=== PATIENT | female | born 2000 | race African-American/Black ===

== ENCOUNTER 2021-09-04 14:56 | Outpatient (CLI) | payer OTHER | END 2021-09-04 16:06 | disposition home or self-care (01) | LOC: PRENATAL 14:56 | PROVIDERS: ATTEND Obstetrics & Gynecology Maternal & Fetal Medicine | DX: O35.0XX1 Maternal care for (suspected) central nervous system malformation in fetus, fetus 1 (principal); O35.3XX1 Maternal care for (suspected) damage to fetus from viral disease in mother, fetus 1; O98.513 Other viral diseases complicating pregnancy, third trimester; Z36.89 Encounter for other specified antenatal screening; Z3A.30 30 weeks gestation of pregnancy ==

== ENCOUNTER 2021-10-17 14:05 | Outpatient (CLI) | payer OTHER | END 2021-10-17 16:09 | disposition home or self-care (01) | LOC: PRENATAL 14:05 | PROVIDERS: ATTEND Obstetrics & Gynecology Maternal & Fetal Medicine | DX: O26.843 Uterine size-date discrepancy, third trimester (principal); O36.8131 Decreased fetal movements, third trimester, fetus 1; O35.0XX1 Maternal care for (suspected) central nervous system malformation in fetus, fetus 1; Z36.89 Encounter for other specified antenatal screening; Z3A.35 35 weeks gestation of pregnancy ==

== ENCOUNTER 2021-11-12 06:27 | Inpatient (IN) | payer OTHER ==
[~2021-11-12] VITALS: Ht 147.3 cm; Wt 3.2 kg
[2021-11-12] MEDS ORDERED: PRENATAL TABLE1 EAC1 PO (08:42)
[2021-11-12] MEDS ORDERED: FOLIC ACID20 MG PO (08:42)
[2021-11-12] MEDS ORDERED: CHILDREN'S ASPI81 MG PO (08:43)
== END 2021-11-15 12:10 | disposition home or self-care (01) | DRG 788 ==
LOC: OB/GYN 06:27 → LDR 06:27 → OB/GYN 23:49
PROVIDERS: ADMIT Obstetrics & Gynecology; ATTEND Obstetrics & Gynecology
PROC: 10907ZC Drainage of Amniotic Fluid, Therapeutic from Products of Conception, Via Natural or Artificial Opening (ICD-10-PCS; 2021-11-12)
PROC: 3E0P7VZ Introduction of Hormone into Female Reproductive, Via Natural or Artificial Opening (ICD-10-PCS; 2021-11-12)
PROC: 4A1HXFZ Monitoring of Products of Conception, Cardiac Rhythm, External Approach (ICD-10-PCS; 2021-11-12)
PROC: 10D00Z1 Extraction of Products of Conception, Low, Open Approach (ICD-10-PCS; principal; 2021-11-12 21:00)
DX: O65.9 Obstructed labor due to maternal pelvic abnormality, unspecified (principal); O62.1 Secondary uterine inertia; O48.0 Post-term pregnancy; Z37.0 Single live birth; Z3A.39 39 weeks gestation of pregnancy